=== PATIENT | female | born 1990 | race Hispanic/Latino ===

== ENCOUNTER 2018-02-17 14:37 | Outpatient (CLI) | payer OTHER | END 2018-02-17 14:38 | disposition home or self-care (01) | LOC: BICRAD 14:37 | PROVIDERS: ATTEND Anesthesiology Pain Medicine | DX: M16.11 Unilateral primary osteoarthritis, right hip (principal); M21.951 Unspecified acquired deformity of right thigh ==

== ENCOUNTER 2021-06-27 13:28 | Emergency (ER) | payer OTHER | END 2021-06-27 14:58 | disposition home or self-care (01) | LOC: ERS 13:28 | DX: L03.112 Cellulitis of left axilla (principal); E11.9 Type 2 diabetes mellitus without complications; I10 Essential (primary) hypertension; F17.210 Nicotine dependence, cigarettes, uncomplicated; Z79.84 Long term (current) use of oral hypoglycemic drugs; Z79.899 Other long term (current) drug therapy | CPT/HCPCS: 99283 ==

== ENCOUNTER 2024-08-07 23:58 | Emergency (ER) | payer OTHER ==
[2024-08-08] MEDS ORDERED: diphenhydrAMINE 50 MG/ML VIAL ONE (01:41)
[2024-08-08] MEDS ORDERED: Acetaminophen 500 MG TAB ONE (01:41)
[2024-08-08] MEDS ORDERED: Metoclopramide HCl 10 MG (2 mL) VIAL ONE (01:41)
[2024-08-08] MEDS ORDERED: Ketorolac Tromethamine 30 MG (1 mL) VIAL ONE ×2 (01:41→01:42)
[2024-08-08] MEDS ORDERED: Magnesium 2 GM/50 ML BAG (IN WATER) ONE (01:41)
== END 2024-08-08 03:43 | disposition home or self-care (01) ==
LOC: ERS 23:58
DX: G43.909 Migraine, unspecified, not intractable, without status migrainosus (principal); G89.29 Other chronic pain; E11.9 Type 2 diabetes mellitus without complications; I10 Essential (primary) hypertension; F17.210 Nicotine dependence, cigarettes, uncomplicated; Z55.6 Problems related to health literacy
CPT/HCPCS: 96361; 96365; 96375; J1200; J1885; J2765; J3475